=== PATIENT | female | born 1980 | race Hispanic/Latino ===

== ENCOUNTER 2022-02-06 22:42 | Emergency (ER) | payer OTHER, SELFPAY ==
[2022-02-06] MEDS ORDERED: LABETALOL 20 MG/4ML SYRINGE IV ONE (23:16)
[2022-02-06 23:43] LABS: Absolute Lymphocytes (CBC) 0.6 K/uL (0.7-4.9); Hematocrit 34.5 % (36.0-45.0); MCV 76.7 fL (80-100)
[2022-02-06 23:47] LABS: Protime INR 1.05
[2022-02-07 00:13] LABS: ALT/SGPT 17 U/L (12-78); Albumin 3.7 g/dL (3.4-5.0); Alkaline Phosphatase 60 U/L (45-117); BUN Blood Urea Nitrogen 6 mg/dL (7-18); Bicarbonate 27 mmol/L (21-32); Bilirubin Total 0.6 mg/dL (0.2-1.0); Glomerular Filtration Rate 91 ml/min (=/>90); Glucose Level 117 mg/dL (74-106); Protein, Total 7.5 g/dL (6.4-8.2); Sodium Level 137 mmol/L (136-145)
[2022-02-07 00:14] LABS: AST/SGOT 26 U/L (15-37); Bilirubin Direct < 0.1 mg/dL (0-0.2); Magnesium 2.1 mg/dL (1.8-2.4); Potassium 3.6 mmol/L (3.5-5.1)
[2022-02-07 00:16] LABS: Troponin High Sensitivity 277.2 pg/mL (<58.9)
[2022-02-07 00:22] LABS: Urine Blood 1+ (Negative); Urine Glucose Negative (Negative); Urine Protein 2+ (Negative); Urine Specific Gravity 1.025 (1.005-1.030)
[2022-02-07 00:33] LABS: Urine Specific Gravity/Preg 1.025 (1.005-1.030)
[2022-02-07 00:43] LABS: Barbiturates NEGATIVE (NEGATIVE); Benzodiazepines NEGATIVE (NEGATIVE); Cocaine NEGATIVE (NEGATIVE); METHAMPHETAM NEGATIVE (NEGATIVE); Methadone NEGATIVE (NEGATIVE); Opiates NEGATIVE (NEGATIVE); Phencyclidine NEGATIVE (NEGATIVE); THC Cannibis NEGATIVE (NEGATIVE)
[2022-02-07 01:10] LABS: SARS-COV-2 RT PCR NEGATIVE (NEGATIVE)
--- NOTE | 2022-02-07 02:17 | EDPHYS ---
Physician Documentation [facility] Name: Afua Harrington Age: 41 yrs Sex: Female : 1980 Arrival Date: 02/06/2022 Time: 22:43 Bed 3 Private MD: ED Physician Manuela Parnell HPI: 02/06 23:07 This 41 yrs old Female presents to ER via Wheelchair with complaints of High sd2 Blood Pressure, Slurred Speech. 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 reports that patient LKW time was at 8AM when he left for work this morning. When he returned home at 5PM, he noticed the patient had progressively worsening slurred speech and confusion. BP was also elevated at home despite patient taking her home BP medications. No recent changes to medications. Not taking blood thinners. Pt reports associated pain to L arm but denies any new numbness or weakness. . 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 - Social history:: Smoking status: Patient denies any tobacco usage or history of. ROS: 23:07 Constitutional: Negative for fever, chills, and weight loss, Eyes: Negative for injury, sd2 pain, redness, and discharge, Cardiovascular: Negative for chest pain, palpitations, and edema, Respiratory: Negative for shortness of breath, cough, wheezing. Abdomen/GI: Negative for abdominal pain, nausea, vomiting, diarrhea. MS/Extremity: Negative for injury and deformity, Positive for left arm pain Skin: Negative for injury, rash, and discoloration, Neuro: Negative for headache, numbness and tingling. Positive for chronic weakness, slurred speech. Exam: 23:07 Constitutional: This is a well developed, well nourished patient who is awake, alert, sd2 and in no acute distress. Head/Face: Normocephalic, atraumatic. Eyes: EOMI, normal conjunctiva bilaterally Chest/axilla: Normal chest wall appearance and motion. Nontender with no deformity. Cardiovascular: Regular rate and rhythm with a normal S1 and S2. No gallops, murmurs, or rubs. 2+ distal pulses. Respiratory: Lungs have equal breath sounds bilaterally, clear to auscultation and percussion. No rales, rhonchi or wheezes noted. No increased work of breathing, no retractions or nasal flaring. Abdomen/GI: Soft, non-tender, with normal bowel sounds. No guarding or rebound. No evidence of tenderness throughout. Skin: Warm, dry with normal turgor. Normal color with no rashes, no lesions, and no evidence of cellulitis. MS/ Extremity: Pulses equal, no cyanosis. Neurovascular intact. Full, normal range of motion. Chronic decreased tone to LUE/LLE. Neuro: Awake and alert, GCS 15, oriented to person, place, time, and situation. Cranial nerves II-XII grossly intact. Motor strength 5/5 in RUE/RLE, chronic paralysis to LUE/LLE. Sensory grossly intact. Psych: Awake, alert, with orientation to person, place and time. Behavior, mood, and affect are within normal limits. 02/07 03:22 ECG was reviewed by the Attending Physician. NSR, rate 82, no STEMI criteria, baseline sd2 artifact present Vital Signs: 02/06 22:58 BP 207 / 113; Pulse 94; Resp 16 S; Temp 100.3(O); Pulse Ox 98% on R/A; Weight 75.3 kg bb (R); Height 5 ft. 4 in. (162.56 cm) (R); Pain 0/10; 23:33 BP 201 / 108; Pulse 90; Resp 18 S; Pulse Ox 99% on R/A; bb 02/07 00:00 BP 182 / 107; Pulse 83; Resp 17 S; Pulse Ox 100% on R/A; aa9 00:06 BP 182 / 107; Pulse 82; Resp 16; Pulse Ox 97% on R/A; bb 01:52 BP 206 / 137; Pulse 83; Resp 19 S; Pulse Ox 99% on R/A; aa9 02:00 BP 213 / 125; Pulse 91; Resp 18 S; Pulse Ox 99% on R/A; aa9 02:30 BP 202 / 124; Pulse 93; Resp 19 S; Pulse Ox 100% on R/A; aa9 03:00 BP 190 / 121; Pulse 88; Resp 18 S; Pulse Ox 98% on R/A; aa9 03:30 BP 211 / 128; Pulse 84; Resp 17 S; Pulse Ox 99% on R/A; aa9 03:54 BP 177 / 128; Pulse 88; Resp 18; Pulse Ox 99% on R/A; tw5 04:00 BP 190 / 116; Pulse 95; Resp 18 S; Pulse Ox 94% on R/A; aa9 04:30 BP 183 / 116; Pulse 89; Resp 19 S; Pulse Ox 98% on R/A; aa9 05:00 BP 185 / 119; Pulse 86; Resp 20 S; Pulse Ox 96% on R/A; aa9 05:02 BP 188 / 113; Pulse 85; Resp 19 S; Pulse Ox 98% on R/A; aa9 05:04 BP 185 / 157; Pulse 81; Resp 20 S; Pulse Ox 95% on R/A; aa9 05:11 BP 185 / 157; aa9 05:30 BP 205 / 125; Pulse 87; Resp 18 S; Pulse Ox 99% on R/A; aa9 06:10 BP 180 / 112; Pulse 87; Resp 15 S; Pulse Ox 97% on R/A; aa9 06:19 BP 188 / 116; aa9 06:25 BP 168 / 103; Pulse 93; aa9 06:25 BP 177 / 115; aa9 06:30 BP 158 / 109; Pulse 92; Resp 18 S; Pulse Ox 97% on R/A; aa9 02/06 22:58 Body Mass Index 28.49 (75.30 kg, 162.56 cm) bb 05:30 Provider notified aa9 NIH Stroke Scale Scores: 05:27 NIHSS Score: 2 tw5 MDM: 02/06 23:06 Patient medically screened. sd2 23:07 Differential diagnosis: ICH, CVA, encephalopathy, UTI, PNA, electrolyte abnormality sd2 among others. Data reviewed: vital signs, nurses notes. 02/07 03:22 Data reviewed: lab test result(s), EKG, radiologic studies. sd2 03:22 ED course: Labs and imaging reviewed. No evidence of hemorrhagic CVA or LVO. BP sd2 controlled to permissive hypertension levels with Labetalol. Pt will need further stroke workup. We do not have MRI capabilities on the weekend, and therefore, the patient will be transferred for this service. Pt comfortable with plan for transfer and is currently stable for transfer.. 03:34 ED course: Discussed case with Dr. Shepherd, Neurology, at transferring facility and sd2 accepts patient as transfer. pending callback and acceptance from the hospitalist.. 05:06 ED course: Discussed case with Dr. Velazquez, hospitalist at [facility], who would like repeat sd2 troponin sent and to follow up with result prior to accepting patient as a transfer to ensure she is appropriate for the floor. . 06:02 ED course: Discussed case with Dr. Gonzales, Neuro ICU, at [facility] once again and sd2 informed of second troponin value and once again elevated BP. After discussion, will start Cardene gtt with goal SBP between 150 and 180. Pt has been upgraded to Neuro ICU with bed available and accepted to their facility. Pt currently stable for transfer. . 02/06 23:07 Order name: Basic Metabolic Panel; Complete Time: 00:19 sd2 02/06 23:07 Order name: CBC with Diff; Complete Time: 00:19 sd2 02/06 23:07 Order name: Hepatic Function; Complete Time: 00:19 sd2 02/06 23:07 Order name: High Sensitivity Troponin; Complete Time: 00:19 sd2 02/06 23:07 Order name: Magnesium; Complete Time: 00:19 sd2 02/06 23:07 Order name: Protime (+inr); Complete Time: 00:19 2 02/06 23:07 Order name: Ptt, Activated; Complete Time: 00:19 sd2 02/06 23:07 Order name: UDS; Complete Time: 01:02 sd02/06 23:07 Order name: CT Stroke Brain w/o Contrast 02/06 23:07 Order name: Stroke CXR 1 View 02/06 23:55 Order name: COVID-19/FLU A+B/RSV; Complete Time: 01:12 02/07 00:22 Order name: Urine Dipstick-Ancillary; Complete Time: 01:02 EDMS 02/07 00:29 Order name: Urine --Ancillary (enter results); Complete Time: 01:02 wm 02/07 04:57 Order name: Troponin High Sensitivity; Complete Time: 05:58 02/06 23:07 Order name: EKG; Complete Time: 23:07 02/06 23:07 Order name: Cardiac monitoring; Complete Time: 23:34 02/06 23:07 Order name: EKG - Nurse/Tech; Complete Time: 00:21 sd2 02/06 23:07 Order name: IV Saline Lock; Complete Time: 23:34 02/06 23:07 Order name: Labs collected and sent; Complete Time: 23:34 02/06 23:07 Order name: NPO; Complete Time: 23:34 sd02/06 23:07 Order name: O2 Per Protocol; Complete Time: 23:34 02/06 23:07 Order name: O2 Sat Monitoring; Complete Time: 23:34 02/06 23:55 Order name: CT Head Angio 02/06 23:55 Order name: CT Neck Angio ia02/06 23:07 Order name: Stroke Swallow Screen; Complete Time: 23:36 sd2 Administered Medications: 02/06 23:33 Drug: Labetalol 20 mg Route: IV; Rate: bolus; Infused Over: 2 mins; Site: right wrist; 02/07 03:51 Follow up: IV Status: Completed infusion 03:03 Drug: Labetalol 20 mg Route: IV; Rate: bolus; Infused Over: 2 mins; Site: right hand; aa9 03:51 Follow up: Response: No adverse reaction; IV Status: Completed infusion 03:51 Drug: Labetalol 20 mg Route: IV; Rate: calculated rate; Infused Over: 2 mins; Site: tw right hand; 05:11 Follow up: BP 185 / 157; Response: No adverse reaction; IV Status: Completed infusion aa9 05:02 Drug: Aspirin 325 mg Route: PO; aa9 06:46 Follow up: Response: No adverse reaction tw5 06:13 Drug: niCARdipine 2.5 mg/hr Route: IV; Rate: Titrate; Site: right wrist; aa9 06:19 Follow up: BP 188 / 116; Rate change 2.5 mg/min aa9 06:25 Follow up: BP 177 / 115; Rate change 5 mg/min aa9 06:46 Follow up: Response: Blood pressure is lowered; IV Status: Infusion continued upon tw5 transfer Disposition Summary: 02/07/22 02:16 Transfer Ordered Transfer Location: [facility] sd2 Reason: Higher level of care sd2 Condition: Stable sd2 Problem: new sd2 Symptoms: have improved sd2 Accepting Physician: Dr. Reji Gonzales(02/07/22 06:47) tw5 Diagnosis - Hypertensive emergency sd2 - Altered mental status, unspecified sd2 - Stroke-like symptoms sd2 Forms: - Medication Reconciliation Form sd2 - SBAR form sd2 Critical care time excluding procedures: 06:02 Critical care time: Bedside Care: 45 minutes, Consultation: 60 minutes, Family sd2 Intervention: 5 minutes. Total time: 110 minutes NIH Stroke Scale - NIH Stroke Score Date: 02/07/2022 Time: 05:27 Total Score = 2 1a. Level of Consciousness (LOC) - 0(Alert) 1b. Level of Consciousness (LOC) (Month \T\ Age) - 0(Both) 1c. LOC Commands (Open \T\ Closes Eyes/Equipment Man) - 0(Both) 2. Best Gaze (Lateral Gaze Paresis) - 0(Normal) 3. Visual Field Loss - 0(No visual loss) 4. Facial Palsy - 0(Normal) 5a. Left Arm: Motor (10-second hold) - 0(No drift) 5b. Right Arm: Motor (10-second hold) - 0(No drift) 6a. Left Leg: Motor (5-second hold - always test supine) - 0(No drift) 6b. Right Leg: Motor (5-second hold - always test supine) - 0(No drift) 7. Limb Ataxia (finger/nose \T\ heel/stover - test with eyes open) - 0(Absent) 8. Sensory Loss (pinprick arms/legs/face) - 1(Mild to moderate loss) 9. Best Language: Aphasia (description/naming/reading) - 0(No aphasia) 10. Dysarthria (speech clarity - read or repeat words) - 1(Mild to Moderate) 11. Extinction and Inattention (visual/tactile/auditory/spatial/personal) - 0(No abnormality) Initials: 5 Signatures: Dispatcher [employer] EDCynthia Thomson RN RN bb Wood, Tiffany tw5 Manuela Parnell MD MD sd2 Maren Harrington, RN RN aa9 Corrections: (The following items were deleted from the chart) 03:25 02:16 Unknown sd2 sd2 03:51 11 23:07 Accsandyeck ordered. sd2 tw5 02/07 06:03 03:25 Unknown sd2 sd2 06:04 06:02 ED course: Discussed case with Dr. Shepherd, Neuro ICU, at [facility] once again sd2 and informed of second troponin value and once again elevated BP. After discussion, will start Cardene gtt with goal SBP between 150 and 180. Pt has been upgraded to Neuro ICU with bed available and accepted to their facility. Pt currently stable for transfer. . sd2 06:47 06:03 Dr. Reji Gonzales sd2 tw5
--- NOTE | 2022-02-07 02:17 | ER ---
Nurse's Notes [facility] Name: Afua Harrington Age: 41 yrs Sex: Female : 1980 Arrival Date: 02/06/2022 Time: 22:43 Bed 3 Private MD: Diagnosis: Hypertensive emergency;Altered mental status, unspecified;Stroke-like symptoms Presentation: 02/06 22:58 Chief complaint: Spouse and/or significant other states: when he got home from work bb tonight around 1700 he noticed pt with slurred speech looking dazed and confused checked her BP and it was 202/154 then he gave pt an extra BP med lisinopril waited 45 mins and it went to 188/104 speech got better but they decided to come to the ED. Pt states she did not notice she was having trouble with her speech. Coronavirus screen: At this time, the client does not indicate any symptoms associated with coronavirus-19. Ebola Screen: No symptoms or risks identified at this time. Initial Sepsis Screen: Does the patient meet any 2 criteria? No. Patient's initial sepsis screen is negative. Does the patient have a suspected source of infection? No. Patient's initial sepsis screen is negative. Risk Assessment: Do you want to hurt yourself or someone else? Patient reports no desire to harm self or others. Onset of symptoms was February 06, 2022. 22:58 Method Of Arrival: Wheelchair 22:58 Acuity: LEOBARDO 2 bb Triage Assessment: 23:02 The onset of the patients symptoms was February 06, 2022 at 17:00. bb 02/07 05:34 General: Behavior is calm, cooperative. Neuro: Reports. 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 - Social history:: Smoking status: Patient denies any tobacco usage or history of. Screenin:36 The patient has not been NPO before screening. The patient is alert, able to follow bb commands. The patient does not exhibit slurred or garbled speech The patient is not exhibiting difficulty speaking. The patient does not exhibit difficulty understanding words. The patient is able to swallow own secretions with no drooling or need for suction. Patient tolerated one teaspoon of water. No drooling, immediate coughing, gurgling, or clearing of the throat was noted. The patient tolerated 90mL of water. No drooling, immediate coughing, gurgling, or clearing of the throat was noted. The patient passed the bedside swallow screening. Oral medications may be given as ordered. Contact Physician for further diet orders. 02/07 03:43 Abuse screen: Denies threats or abuse. Denies injuries from another. Nutritional aa9 screening: No deficits noted. Tuberculosis screening: No symptoms or risk factors identified. Fall Risk Gait- Normal/Bed Rest/Wheelchair (0 pts). Assessment: 02/06 23:05 General: Appears in no apparent distress. left sided contracture noted from previous tw5 stroke. 23:11 General: Nursing staff transported patient to CT. tw5 23:38 The patient has not been NPO before screening. The patient is alert, and able to follow bb commands. The patient does not exhibit slurred or garbled speech. The patient is not exhibiting difficulty speaking. The patient does not exhibit difficulty understanding words. The patient is able to swallow own secretions with no drooling or need for suction. Patient tolerated one teaspoon of water. No drooling, immediate coughing, gurgling, or clearing of the throat was noted. The patient tolerated 90mL of water. No drooling, immediate coughing, gurgling, or clearing of the throat was noted. The patient passed the bedside swallow screening. Oral medications may be given as ordered. Contact Physician for further diet orders. TNKase (Tenecteplase) Screening: Contraindications: Patient reports onset of signs and symptoms of stroke greater than 6 hours ago: Yes. 23:40 Provider notified of bedside swallow screening results: Manuela Parnell MD. bb 02/07 01:00 General: Appears comfortable, Behavior is cooperative, appropriate for age, assisted pt aa9 with bedpan, pt tolerated well. Cardiovascular: Patient's skin is warm and dry. 01:00 Neuro: Level of Consciousness is awake, alert, obeys commands, Oriented to person, aa9 place, time, situation. Respiratory: Airway is patent Respiratory effort is even, unlabored. GI: No signs and/or symptoms were reported involving the gastrointestinal system. Derm: Skin is intact, is healthy with good turgor. 03:40 VAN Scoring:. Pain: Denies pain. tw5 05:13 Reassessment: Patient appears in no apparent distress at this time. Patient and/or aa9 family updated on plan of care and expected duration. Pain level reassessed. Pain: Denies pain. Neuro: Level of Consciousness is awake, alert, obeys commands, Oriented to person, place, time, situation, Speech is normal. 06:23 Reassessment: Patient appears in no apparent distress at this time. Patient and/or aa9 family updated on plan of care and expected duration. Pain level reassessed. Reassessment:. Pain: Denies pain. Neuro: Level of Consciousness is awake, alert, obeys commands, Oriented to person, place, time, situation, Speech is normal. Vital Signs: 02/06 22:58 BP 207 / 113; Pulse 94; Resp 16 S; Temp 100.3(O); Pulse Ox 98% on R/A; Weight 75.3 kg bb (R); Height 5 ft. 4 in. (162.56 cm) (R); Pain 0/10; 23:33 BP 201 / 108; Pulse 90; Resp 18 S; Pulse Ox 99% on R/A; bb 02/07 00:00 BP 182 / 107; Pulse 83; Resp 17 S; Pulse Ox 100% on R/A; aa9 00:06 BP 182 / 107; Pulse 82; Resp 16; Pulse Ox 97% on R/A; bb 01:52 BP 206 / 137; Pulse 83; Resp 19 S; Pulse Ox 99% on R/A; aa9 02:00 BP 213 / 125; Pulse 91; Resp 18 S; Pulse Ox 99% on R/A; aa9 02:30 BP 202 / 124; Pulse 93; Resp 19 S; Pulse Ox 100% on R/A; aa9 03:00 BP 190 / 121; Pulse 88; Resp 18 S; Pulse Ox 98% on R/A; aa9 03:30 BP 211 / 128; Pulse 84; Resp 17 S; Pulse Ox 99% on R/A; aa9 03:54 BP 177 / 128; Pulse 88; Resp 18; Pulse Ox 99% on R/A; tw5 04:00 BP 190 / 116; Pulse 95; Resp 18 S; Pulse Ox 94% on R/A; aa9 04:30 BP 183 / 116; Pulse 89; Resp 19 S; Pulse Ox 98% on R/A; aa9 05:00 BP 185 / 119; Pulse 86; Resp 20 S; Pulse Ox 96% on R/A; aa9 05:02 BP 188 / 113; Pulse 85; Resp 19 S; Pulse Ox 98% on R/A; aa9 05:04 BP 185 / 157; Pulse 81; Resp 20 S; Pulse Ox 95% on R/A; aa9 05:11 BP 185 / 157; aa9 05:30 BP 205 / 125; Pulse 87; Resp 18 S; Pulse Ox 99% on R/A; aa9 06:10 BP 180 / 112; Pulse 87; Resp 15 S; Pulse Ox 97% on R/A; aa9 06:19 BP 188 / 116; aa9 06:25 BP 168 / 103; Pulse 93; aa9 06:25 BP 177 / 115; aa9 06:30 BP 158 / 109; Pulse 92; Resp 18 S; Pulse Ox 97% on R/A; aa9 02/06 22:58 Body Mass Index 28.49 (75.30 kg, 162.56 cm) bb 05:30 Provider notified aa9 Vitals: 00:00 Cardiac Rhythm Assessment Regular. aa9 NIH Stroke Scale Scores: 05:27 NIHSS Score: 2 tw5 ED Course: 02/06 22:43 Patient arrived in ED. ja2 23:02 Triage completed. bb 23:02 Arm band placed on Patient placed in an exam room, on a stretcher, on front desk monitor, bb on pulse oximetry. Family accompanied patient. 23:04 Charlene Jordan is Primary Nurse. tw5 23:06 Manuela Parnell MD is Attending Physician. sd2 23:[address] via stretcher. tw5 23:19 CT Stroke Brain w/o Contrast In Process Unspecified. EDMS 23:20 Initial lab(s) drawn, by me, sent to lab. Inserted saline lock: 20 gauge in right bb wrist, using aseptic technique. Blood collected. 23:36 Stroke CXR 1 View In Process Unspecified. EDMS 02/07 00:30 Urine --Ancillary (enter results) Sent. aa9 00:30 COVID-19/FLU A+B/RSV Sent. aa9 00:44 CT Head Angio In Process Unspecified. EDMS 00:44 CT Neck Angio In Process Unspecified. EDMS 01:00 Assisted with bedpan. aa9 01:00 Patient has correct armband on for positive identification. Placed in gown. Bed in low aa9 position. Call light in reach. Side rails up X2. Adult w/ patient. 01:00 Warm blanket given. aa9 03:06 Initiated transfer to [facility], spoke with Brady. wm 05:11 Troponin High Sensitivity Sent. aa9 05:14 Door closed. Lights dimmed. Warm blanket given. Pillow given. PO fluids given. Family aa9 accompanied patient. 05:15 Pt accepted for transfer to [facility] Neuro ICU by Dr. Lloyd Gonzales per Brady Gomez. wm Administered Medications: 02/06 23:33 Drug: Labetalol 20 mg Route: IV; Rate: bolus; Infused Over: 2 mins; Site: right wrist; bb 02/07 03:51 Follow up: IV Status: Completed infusion tw 03:03 Drug: Labetalol 20 mg Route: IV; Rate: bolus; Infused Over: 2 mins; Site: right hand; aa9 03:51 Follow up: Response: No adverse reaction; IV Status: Completed infusion 03:51 Drug: Labetalol 20 mg Route: IV; Rate: calculated rate; Infused Over: 2 mins; Site: tw5 right hand; 05:11 Follow up: BP 185 / 157; Response: No adverse reaction; IV Status: Completed infusion aa9 05:02 Drug: Aspirin 325 mg Route: PO; aa9 06:46 Follow up: Response: No adverse reaction tw5 06:13 Drug: niCARdipine 2.5 mg/hr Route: IV; Rate: Titrate; Site: right wrist; aa9 06:19 Follow up: BP 188 / 116; Rate change 2.5 mg/min aa9 06:25 Follow up: BP 177 / 115; Rate change 5 mg/min aa9 06:46 Follow up: Response: Blood pressure is lowered; IV Status: Infusion continued upon tw5 transfer Medication: 02/06 23:40 VIS not applicable for this client. bb Outcome: 02/07 02:16 ER care complete, transfer ordered by MD. wynn 06:46 Transferred by ground EMS to [facility], Transfer form completed. 06:46 Condition: improved 06:46 Discharge instructions given to patient, family, Instructed on the need for transfer. 06:46 Transferred Note: bedside report given to EMS crew 06:47 Patient left the ED. NIH Stroke Scale - NIH Stroke Score Date: 02/07/2022 Time: 05:27 Total Score = 2 1a. Level of Consciousness (LOC) - 0(Alert) 1b. Level of Consciousness (LOC) (Month \T\ Age) - 0(Both) 1c. LOC Commands (Open \T\ Closes Eyes/Double Backer) - 0(Both) 2. Best Gaze (Lateral Gaze Paresis) - 0(Normal) 3. Visual Field Loss - 0(No visual loss) 4. Facial Palsy - 0(Normal) 5a. Left Arm: Motor (10-second hold) - 0(No drift) 5b. Right Arm: Motor (10-second hold) - 0(No drift) 6a. Left Leg: Motor (5-second hold - always test supine) - 0(No drift) 6b. Right Leg: Motor (5-second hold - always test supine) - 0(No drift) 7. Limb Ataxia (finger/nose \T\ heel/stover - test with eyes open) - 0(Absent) 8. Sensory Loss (pinprick arms/legs/face) - 1(Mild to moderate loss) 9. Best Language: Aphasia (description/naming/reading) - 0(No aphasia) 10. Dysarthria (speech clarity - read or repeat words) - 1(Mild to Moderate) 11. Extinction and Inattention (visual/tactile/auditory/spatial/personal) - 0(No abnormality) Initials: Signatures: Dispatcher [employer] EDMS Cynthia Melgar RN RN bb Marsh, Wendy wm Alexander, Jessica ja2 Wood, Tiffany Manuela Parnell MD MD sd2 Maren Harrington RN RN aa9 Corrections: (The following items were deleted from the chart) 02/06 23:12 23:11 General: Nursing staff escorted patient to cT. 02/07 03:42 01:00 Musculoskeletal: aa9 05:27 03:40 NIHSS Score: 7 tw5 tw5 05:58 05:30 BP 205 / 125; Pulse 87bpm; Resp 18bpm; Spontaneous; Pulse Ox 99% RA; aa9 06:27 06:13 niCARdipine 5 mg/hr IV at Titrate in right wrist
[2022-02-07] MEDS ORDERED: LABETALOL 20 MG/4ML SYRINGE IV ONE ×2 (02:50→03:39)
[2022-02-07] MEDS ORDERED: ASPIRIN 325 MG TAB ONE ×2 (04:55→05:00)
[2022-02-07] MEDS ORDERED: Nicardipine/NS 25 MG/250 ML KIT IV ONE (06:06)
[2022-02-07 07:02] VITALS: TEMP 100.3
[2022-02-07 07:30] VITALS: O2SAT 97
[2022-02-07 07:32] VITALS: BP 158/109
--- NOTE | 2022-02-07 19:11 | EKG ---
Test Date: 2022-02-07 Test Time: 00:06:53 Merchandise Stocker: KAYLI MEASUREMENT RESULTS: Intervals: Rate: 81 VT: 138 QRSD: 92 QT: 406 QTc: 471 [place]: P: 41 VT: 138 QRS: 3 T: 131 INTERPRETIVE STATEMENTS: Normal sinus rhythm ST & T wave abnormality, consider lateral ischemia Prolonged QT Abnormal ECG Compared to ECG 06/19/2014 16:27:45 ST (T wave) deviation now present Possible ischemia now present Prolonged QT interval now present Electronically Signed On 02-07-22 19:10:14 TOUCH UP WORKER by Luis Antonio Tate
--- NOTE | 2022-02-09 11:22 | RAD REPORT ---
EXAM DESCRIPTION: CT - Ct Stroke Brain Wo Cont - 02/07/2022 5:57 am ADDENDUM #1 CODE STROKE PROTOCOL CONFERENCE CALL: The findings were verbally discussed via telephone conference w renan Parnell on 02/06/2022 11:44 PM TECHNICAL SPECIALIST CYTOGENETICS. The results were acknowledged and understood. Electronically signed by: Vilma Stephenson MD 02/06/2022 11:45 PM TECHNICAL SPECIALIST CYTOGENETICS End of Addendum EXAM: CT Head Without Intravenous Contrast CLINICAL HISTORY: Slurred speech, confusion, HTN, hx prior hemorrhagic CVA TECHNIQUE: Axial computed tomography images of the head/brain without intravenous contrast. Sagitt al and coronal reformatted images were created and reviewed. This CT exam was performed using one o r more of the following dose reduction techniques: automated exposure control, adjustment of the mA and/or kV according to patient size, and/or use of iterative reconstruction technique. COMPARISON: No relevant prior studies available. FINDINGS: Brain: Mild cerebral atrophy. Mild to moderate bilateral periventricular and subcortic al white matter low-attenuation. Right thalamic, basal ganglia and insular encephalomalacia compati ble with remote insult. No hemorrhage. Ventricles: Ex vacuo dilatation of the right lateral ventricle. Bones/joints: Unremarkable. No acute fracture. Soft tissues: Unremarkable. Sinuses: Moderate bilateral maxillary polypoid mucosal thickening. Mild bilateral posterior ethmo id sinus mucosal thickening. Complete opacification of the left frontal sinus. Mastoid air cells: Unremarkable as visualized. No mastoid effusion. IMPRESSION: 1. No acute hemorrhage, focal mass or acute large territory infarction. 2. Mild to moderate white matter changes which are nonspecific. Differential considerations inclu de but are not limited to gliosis, sequela of migraine and age advanced chronic microvascular angiopa thy. 3. Other findings as above. Electronically signed by: Vilma Stephenson MD 02/06/2022 11:36 PM TECHNICAL SPECIALIST CYTOGENETICS Due to temporary technical issues with the PACS/Fluency reporting system, reports are being signed by the in house radiologists without review as a courtesy to insure prompt reporting. The interpreting radiologist is fully responsible for the content of the report.
--- NOTE | 2022-02-09 11:24 | RAD REPORT ---
EXAM DESCRIPTION: CT - Head angio - 02/07/2022 6:03 am CLINICAL HISTORY: 41 years Female Neuro deficit, acute, stroke suspected COMPARISON: CT scan of the brain performed on the same day. TECHNIQUE: Images were obtained in axial, sagittal, and coronal planes. Intravenous contrast was adm inistered. 3-D MIP imaging was performed. Images were evaluated utilizing the NASCET criteria. This exam was performed according to our departmental dose-optimization program which includes use of Automated Exposure Control, adjustment of the mA and/or kV according to patient size and/or use of iterative reconstruction technique. FINDINGS: CT angiogram neck: No significant calcified or noncalcified plaque bilaterally. Patent balaji ateral common, internal, and external carotid arteries. Patent vertebral arteries bilaterally. Domina nt right vertebral artery. No evidence for dissection. No hemodynamically significant or greater than 50% stenosis involving the carotid or vertebral arteries bilaterally. Tortuosity proximal right comm on carotid artery. Motion artifact at level of thoracic inlet. CT angiogram brain: Patent carotid siphons bilaterally. Patent anterior and middle cerebral arteries bilaterally. Patent major feeding artery. Patent basilar and posterior cerebral arteries bilaterally. origin right posterior cerebral artery from supraclinoid internal carotid artery. No evidence for aneurysm, thrombus, or hemodynamically significant stenosis. No asymmetric perfusion cerebral hem ispheres bilaterally. No vascular malformation. Mucosal thickening bilateral frontal, bilateral ethmo id, and bilateral maxillary sinuses. IMPRESSION: No hemodynamically significant stenosis involving the carotid or vertebral arteries bila terally. No significant plaque formation bilaterally. Intracerebral vasculature within normal limits. No evidence for large vessel occlusion. Paranasal sin us disease. Electronically signed by: Lavern Metzger MD 02/07/2022 1:17 AM BURGLAR ALARM OPERATOR Due to temporary technical issues with the PACS/Fluency reporting system, reports are being signed by the in house radiologists without review as a courtesy to insure prompt reporting. The interpreting radiologist is fully responsible for the content of the report.
--- NOTE | 2022-02-09 11:29 | RAD REPORT ---
EXAM DESCRIPTION: CT - Neck Angio - 02/07/2022 6:04 am CLINICAL HISTORY: 41 years Female Neuro deficit, acute, stroke suspected COMPARISON: CT scan of the brain performed on the same day. TECHNIQUE: Images were obtained in axial, sagittal, and coronal planes. Intravenous contrast was adm inistered. 3-D MIP imaging was performed. Images were evaluated utilizing the NASCET criteria. This exam was performed according to our departmental dose-optimization program which includes use of Automated Exposure Control, adjustment of the mA and/or kV according to patient size and/or use of iterative reconstruction technique. FINDINGS: CT angiogram neck: No significant calcified or noncalcified plaque bilaterally. Patent balaji ateral common, internal, and external carotid arteries. Patent vertebral arteries bilaterally. Domina nt right vertebral artery. No evidence for dissection. No hemodynamically significant or greater than 50% stenosis involving the carotid or vertebral arteries bilaterally. Tortuosity proximal right comm on carotid artery. Motion artifact at level of thoracic inlet. CT angiogram brain: Patent carotid siphons bilaterally. Patent anterior and middle cerebral arteries bilaterally. Patent major feeding artery. Patent basilar and posterior cerebral arteries bilaterally. origin right posterior cerebral artery from supraclinoid internal carotid artery. No evidence for aneurysm, thrombus, or hemodynamically significant stenosis. No asymmetric perfusion cerebral hem ispheres bilaterally. No vascular malformation. Mucosal thickening bilateral frontal, bilateral ethmo id, and bilateral maxillary sinuses. IMPRESSION: No hemodynamically significant stenosis involving the carotid or vertebral arteries bila terally. No significant plaque formation bilaterally. Intracerebral vasculature within normal limits. No evidence for large vessel occlusion. Paranasal sin us disease. Electronically signed by: Lavern Metzger MD 02/07/2022 1:17 AM HEALTHCARE RECRUITER Due to temporary technical issues with the PACS/Fluency reporting system, reports are being signed by the in house radiologists without review as a courtesy to insure prompt reporting. The interpreting radiologist is fully responsible for the content of the report.
--- NOTE | 2022-02-09 11:31 | RAD REPORT ---
EXAM DESCRIPTION: RAD - Chest Single View - 02/06/2022 11:34 pm CLINICAL HISTORY: The patient is 41 years old and is Female; Stroke TECHNIQUE: Frontal view of the chest. COMPARISON: No relevant prior studies available. FINDINGS: Lungs: Unremarkable. No consolidation. Pleural space: Unremarkable. No pneumothorax. Heart: Unremarkable. Mediastinum: Unremarkable. Bones/joints: Unremarkable. IMPRESSION: No acute findings in the chest. Electronically signed by: Teofilo Solomon MD 02/06/2022 11:44 PM HIDE SORTER Due to temporary technical issues with the PACS/Fluency reporting system, reports are being signed by the in house radiologists without review as a courtesy to insure prompt reporting. The interpreting radiologist is fully responsible for the content of the report.
--- NOTE | 2022-02-09 15:36 | EKG ---
Test Date: 2022-02-07 Test Time: 00:09:37 Backhaul Driver: KAYLI MEASUREMENT RESULTS: Intervals: Rate: 85 [place]: 142 QRSD: 84 QT: 394 QTc: 468 [place]: P: 38 [place]: 142 QRS: -2 T: 113 INTERPRETIVE STATEMENTS: Normal sinus rhythm Left ventricular hypertrophy with repolarization abnormality Abnormal ECG Compared to ECG 02/07/2022 00:06:53 Left ventricular hypertrophy now present Early repolarization now present ST (T wave) deviation no longer present Possible ischemia no longer present Prolonged QT interval no longer present Electronically Signed On 02-09-22 15:30:53 FINANCIAL CONSULTANT by Jacinto Booth
== END 2022-02-07 06:47 | disposition short-term general hospital (02) ==
LOC: ER 22:42
DX: I16.1 Hypertensive emergency (principal); R47.81 Slurred speech; Z86.73 Personal history of transient ischemic attack (TIA), and cerebral infarction without residual deficits; I10 Essential (primary) hypertension; Z20.822 Contact with and (suspected) exposure to COVID-19
CPT/HCPCS: 93005 ×2; 85025; 80048; 36415; 83735; 81025; 85610; 80076; 85730; 81003; 84484 ×2; 0241U; 80307; 70496; 70498; 70450; 71045; 99285; Q9967